=== PATIENT | male | born 1995 | race Caucasian/White ===

== ENCOUNTER 2017-07-13 02:26 | Emergency (ER) | payer BC ==
[~2017-07-13] VITALS: Ht 177.8 cm; Wt 78.2 kg
[2017-07-13 02:29] VITALS: TEMP 36.9; Ht 177.8 cm; Wt 78.2 kg
[2017-07-13] MEDS ORDERED: XYLOCAINE 1%/SOD BICARB 20 ML VIAL INFIL ONE (03:00)
[2017-07-13] MEDS ORDERED: CEPHALEXIN 500MG HOME PACK 1 EA BTL PO ONE (04:15)
[2017-07-13] MEDS ORDERED: CEPH500C PO (04:23)
[2017-07-13 04:50] VITALS: BP 125/64; PULSE 71; O2SAT 97
--- NOTE | 2017-07-14 05:46 | EMERGENCY ROOM VISIT NOTE ---
ED Visit Note First contact with patient: 02:45 CHIEF COMPLAINT: Finger laceration HISTORY OF PRESENT ILLNESS: This 21-year-old male patient presents to the emergency department after cutting the fourth and fifth fingers while cutting a bagel about 1 hour ago. The bleeding has not stopped. Denies weakness or numbness of the finger. The patient has full range of motion of the fingers. The patient rates the pain as dull and 4/10. The patient denies any other injuries. The patient's tetanus shot is reportedly up to date. REVIEW OF SYSTEMS: A 6 system review of systems was completed with positives and pertinent negatives listed in the HPI. ALLERGIES: No known allergies MEDICATIONS: No chronic medication PMH: Otherwise healthy SOCIAL HISTORY: [employer] student who lives locally PHYSICAL EXAM: Vital Signs: Reviewed Nurse's notes, vital signs stable. GENERAL : White male, in no acute distress, well developed, well nourished. SKIN: There is a minimal non-repairable laceration on the fourth digit along the volar aspect. This laceration does not gape and does not require repair. There is a much more significant 3.5 cm deep laceration on the palmar aspect of the right fifth finger. The edges gape apart with traction. There is no foreign material in the wound and it looks clean. There is mild bleeding. The wound does penetrate deeply, and I am unable to identify the flexor tendon. Extension and flexion of the finger appears intact. Full range of motion of the wrist and other fingers. Capillary refill less than 2 seconds. Normal sensation to light and sharp touch. EMERGENCY DEPARTMENT COURSE: I examined the patient. Verbal consent was obtained to perform the procedure. Using sterile technique the wound was cleansed with Betadine. 4 ml of 1% buffered lidocaine was used to perform a digital block to anesthetize the patient. The area was sterilely draped. Once the patient was anesthetized, the wound was copiously irrigated under pressure with sterile saline. The laceration was repaired using 6 simple interrupted 5- 0 nylon sutures. The patient tolerated the procedure well. Hemostasis was achieved. The area was cleaned with sterile saline and dressed with bacitracin ointment and bandage. He will be started on antibiotics out of concern for tendon injury. The patient is evidently known to [employer] [facility] [facility] orthopedics and will be asked to follow-up with her service on Saturday or Saturday after the weekend. The patient was discharged home in good condition. Current/Historical Medications Scheduled Cephalexin Monohydrate (Keflex), 500 MG PO TID Allergies Coded Allergies: No Known Allergies (Unverified , 07/13/17) Vital Signs Date Time Temp Pulse Resp B/P (MAP) Pulse Ox O2 Delivery O2 Flow Rate FiO2 07/13/17 04:50 71 18 125/64 97 07/13/17 02:29 36.9 72 18 128/76 97 Room Air Medications Administered Medications (Trade) Dose Ordered Sig/Barbara Route Start Time Stop Time Status Last Admin Dose Admin Cephalexin Monohydrate (Keflex 500MG Home Pack) 1 homepack NOW ONCE PO 07/13/17 04:15 07/13/17 04:16 DC 07/13/17 04:24 1 HOMEPACK Departure Information Impression Primary Impression: Finger laceration Dispostion Home / Self-Care Condition GOOD Prescriptions Cephalexin Monohydrate (Keflex) 500 Mg Cap 500 MG PO TID for 7 Days, #21 CAP Prov: Matthew Sanchez PA-C 07/13/17 Referrals Cruz Larsen M.D. Forms HOME CARE DOCUMENTATION FORM, IMPORTANT VISIT INFORMATION Patient Instructions My [facility] Additional Instructions Keep wound clean and dry. Do not allow any crusting or dried blood to accumulate on sutures. If this occurs, use a mild soap/water on a Q-tip to clean the wound. Do not use Peroxide to clean the wound as this can delay healing Use an antibiotic ointment like Bacitracin for 3-4 days, then let wound dry. You may bathe and shower as normal, but DO NOT SOAK the wound. Suture removal in about 8-10 days with Orthopedics Return sooner for any signs of infection, increasing redness, swelling, or drainage. Cephalexin(Keflex) 500mg: Take one pill 3 times daily for 7 days to prevent skin infection. All antibiotics can cause diarrhea. If this occurs and you feel worse or it does not resolve in 1-2 days follow up with your doctor or return to the Emergency Department as this could be signs of serious underlying problems. Any medication can cause an allergic reaction, stop the pills immediately and return to the ER for rash, hives, breathing difficulties, or swelling. Contact [facility] orthopedics, Dr. Larsen's office, first thing Damián morning to arrange appropriate follow-up. We have concern that you may have injury to the flexor tendon of the finger.
== END 2017-07-13 04:51 | disposition home or self-care (01) ==
LOC: C.EDB 02:27 → C.EDA 04:51
DX: S61.216A Laceration without foreign body of right little finger without damage to nail, initial encounter (principal); W26.0XXA Contact with knife, initial encounter; Y92.9 Unspecified place or not applicable